=== PATIENT | male | born 1995 | race Caucasian/White ===

== ENCOUNTER 2025-04-14 01:58 | Emergency (ER) | payer SELFPAY ==
[~2025-04-14] VITALS: Ht 175.3 cm; Wt 72.3 kg
[2025-04-14] MEDS ORDERED: PENI500T2 (02:05)
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
[2025-04-14] MEDS ORDERED: iohexol 300mg/ml 100ml inj. ONE (02:47)
[2025-04-14 02:52] VITALS: BP 117/78; PULSE 108; RESP 17; O2SAT 100
== END 2025-04-14 03:02 ==
LOC: ER 01:59
DX: S70.212A Abrasion, left hip, initial encounter (principal); S70.211A Abrasion, right hip, initial encounter; G89.11 Acute pain due to trauma; F10.129 Alcohol abuse with intoxication, unspecified; Y90.9 Presence of alcohol in blood, level not specified; V49.40XA Driver injured in collision with unspecified motor vehicles in traffic accident, initial encounter; Y93.89 Activity, other specified; Y92.89 Other specified places as the place of occurrence of the external cause; Y99.8 Other external cause status
CPT/HCPCS: 99284; Q9967